=== PATIENT | male | born 1960 | race African-American/Black ===

== ENCOUNTER 2018-09-08 11:32 | Emergency (ER) | payer MEDICARE, OTHER ==
[~2018-09-08] VITALS: Ht 172.7 cm; Wt 65.8 kg
--- NOTE | 2018-09-08 11:35 | NUR ---
PT CHRISTOPHER FROM [facility] FOR S/P S[facility]. PT AWAKE, RESPONSIVE, PT ON MONITOR, VSS, NAD NOTED, PENDING MD TELLO
[2018-09-08] MEDS ORDERED: HYDR453.3 TD (11:41)
[2018-09-08] MEDS ORDERED: ATOR10TA PO (11:41)
[2018-09-08] MEDS ORDERED: KETO15CR2 TD (11:41)
[2018-09-08] MEDS ORDERED: BETA15CR5 TD (11:41)
[2018-09-08] MEDS ORDERED: LITH150C PO (11:41)
[2018-09-08] MEDS ORDERED: HALO5TAB PO (11:41)
[2018-09-08] MEDS ORDERED: LORAZEPAM 1 MG TABLET ONE (11:51)
[2018-09-08] MEDS ORDERED: LORAZEPAM 1 MG TABLET PO ONE (12:00)
[2018-09-08 12:01] LABS: BASOPHILS % (AUTO) 0.4 % (0.0-2.0); EOSINOPHILS % (AUTO) 0.9 % (0.0-6.0); HEMATOCRIT 47 % (39-51); HEMOGLOBIN 15.9 g/dL (13.5-17.5); MEAN CORPUSCULAR HGB CONC 34 g/dl (31.0-36.0); MEAN CORPUSCULAR VOLUME 96 fL (80-96); MONOCYTES # (AUTO) 0.5 /CMM (0.1-1.30); MONOCYTES % (AUTO) 8.3 % (2.0-12.0); NEUTROPHILS # (AUTO) 2.5 /CMM (1.8-8.9); NEUTROPHILS % (AUTO) 41.4 % (43.0-81.0); PLATELET COUNT (AUTO) 219 /CMM (150-450); RED BLOOD CELL COUNT(AUTO) 4.87 MIL/uL (4.5-6.0)
[2018-09-08 12:13] LABS: CALCIUM, SERUM 9.4 mg/dL (8.5-10.1); CREATININE 1.9 mg/dL (0.6-1.3); POTASSIUM 3.7 mmol/L (3.5-5.1)
[2018-09-08] MEDS ORDERED: LEVE500T20 PO (12:15)
--- NOTE | 2018-09-08 12:36 | NUR ---
CALLED TRANSPORT ETA 60 MINS IS PER [place] TRIP NUMBER IS [id number]
[2018-09-08] MEDS ORDERED: LEVETIRACETAM (250 MG) 250 MG TABLET PO ONE ×2 (12:40→13:00)
--- NOTE | 2018-09-08 12:51 | NUR ---
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 AWARE OF PT'S TRANSPORT BACK TO [facility], [facility] CALLED FOR [facility] TRANSPORT.
--- NOTE | 2018-09-08 13:54 | NUR ---
pt left via private ambulance, pt left in stable condtion, vss, nad noted.
[2018-09-08 13:55] VITALS: BP 129/80
== END 2018-09-08 13:59 | disposition home or self-care (01) ==
LOC: ER 11:36
DX: R56.9 Unspecified convulsions (principal); Z60.2 Problems related to living alone; Z79.899 Other long term (current) drug therapy
CPT/HCPCS: 36415; 80048; 85025; 99283; A6403